=== PATIENT | male | born 1960 | race Caucasian/White ===

== ENCOUNTER 2016-08-27 09:41 | Outpatient (CLI) | payer BC ==
--- NOTE | 2016-08-27 10:55 | DIAGNOSTIC IMAGING REPORT ---
PROCEDURE: CT PELVIS WITHOUT CONTRAST INDICATION: LEFT GROIN DISCOMFORT TECHNIQUE: Axial scans without and with Valsalva. Coronal and sagittal re-formations. COMPARISON: CT abdomen/pelvis 05/14/2011. FINDINGS: Status post bilateral inguinal herniorrhaphies. No evidence of recurrent hernias. Normal appendix. Mild sigmoid diverticulosis. Dystrophic prostate calcifications. Normal bladder. No pelvic mass, inflammatory changes or free fluid. No suspicious osseous lesions. IMPRESSION: 1. Status post bilateral inguinal herniorrhaphies without recurrent hernia 2. Mild sigmoid diverticulosis
== END 2016-08-27 23:00 | disposition home or self-care (01) ==
LOC: CT SRH 09:41
DX: R10.30 Lower abdominal pain, unspecified (principal); K57.30 Diverticulosis of large intestine without perforation or abscess without bleeding